=== PATIENT | male | born 1995 | race Hispanic/Latino ===

== ENCOUNTER 2018-07-01 19:25 | Emergency (ER) | payer SELFPAY ==
[2018-07-01] MEDS ORDERED: Famotidine 20 MG TAB ONE (19:43)
[2018-07-01] MEDS ORDERED: methylPREDNISolone Sod Succ/PF 125 MG/2 ML VIAL ONE (19:43)
[2018-07-01] MEDS ORDERED: diphenhydrAMINE 25 MG CAP ONE (19:43)
== END 2018-07-01 19:56 | disposition home or self-care (01) ==
LOC: MADERS 19:25
DX: T78.40XA Allergy, unspecified, initial encounter (principal); F17.210 Nicotine dependence, cigarettes, uncomplicated
CPT/HCPCS: 96372; J2930

== ENCOUNTER 2018-07-16 10:52 | Emergency (ER) | payer SELFPAY ==
[2018-07-16] MEDS ORDERED: Dexamethasone 10 MG/ML VIAL ONE (11:53)
== END 2018-07-16 12:15 | disposition home or self-care (01) ==
LOC: MADERS 10:52
DX: S40.862A Insect bite (nonvenomous) of left upper arm, initial encounter (principal); F17.210 Nicotine dependence, cigarettes, uncomplicated; W57.XXXA Bitten or stung by nonvenomous insect and other nonvenomous arthropods, initial encounter
CPT/HCPCS: 96372; J1100